=== PATIENT | male | born 1970 | race Caucasian/White ===

== ENCOUNTER 2019-08-04 20:42 | Inpatient (IN) ==
[2019-08-04] MEDS ORDERED: ONDANSETRON HCL/PF 2 MG/ML VIAL IV ONE (21:44)
[2019-08-04] MEDS ORDERED: NORMAL SALINE 1,000 ML IV ONE (21:47)
--- NOTE | 2019-08-04 21:49 | ERNOTE ---
Abdominal HPI - General Chief Complaint: Abdominal Pain Time Seen by Provider: 08/04/19 21:35 Source: patient Exam Limitations: no limitations - Immun/Allergies/Home Medications Immunizatons: IMMUNIZATION HX Immunizations Up to Date Yes History of Influenza Vaccine Yes Hx Pneumococcal Vaccination No Allergies/Adverse Reactions: Allergies No Known Allergies Allergy (Verified 08/04/19 21:16) Home Medications: HOME MEDICATIONS Multivitamin [Multi Vitamin Daily] 1 each PO DAILY 03/05/14 [Last Taken Unknown] omeprazole 20 mg capsule,delayed release See Rx Instructions .ROUTE .COMPLEX #30 capsule 02/22/19 [Last Taken Unknown] - History of Present Illness Narrative: Patient states he has had some intermittent abdominal pain for 2 to 3 days. This afternoon he had increasing abdominal pain vomiting. Feels like when he had a bowel obstruction 6 years ago. Timing: intermittent Quality: moderate, severe, cramping Activities at Onset: none Review of Systems - Review of Systems Constitutional: Absent: recent illness, fever, chills ENT: Absent: nose congestion, nasal drainage Respiratory: Absent: shortness of breath, cough Cardiology: Present: chest pain - with upper abd pressure Gastrointestinal/Abdominal: Present: See HPI Genitourinary: Absent: dysuria Musculoskeletal: Absent: back pain Skin: Absent: rash Neurological: Absent: headache, dizziness/light-headedness Endocrine: Present: intolerance to cold Medical History (Last Reviewed 08/05/19 @ 02:22 by Star Carter DO) Small bowel obstruction Surgical History: Surgical History (Last Reviewed 08/05/19 @ 02:22 by Star Carter DO) Hx of appendectomy Social History: (Last Reviewed 08/05/19 @ 02:22 by Star Carter DO) Tobacco: Smoking Status: Never smoker Alcohol: alcohol intake: current alcohol intake frequency: holiday/special occasion Substance Use: substance use type: does not use Physical Exam - Physical Exam General Appearance: Present: wd/wn, alert, no apparent distress Head Exam: Present: normal inspection, no evidence of injury Neck: Present: normal inspection, nontender, supple Respiratory: Present: no respiratory distress, normal breath sounds, no accessory muscle use Cardiovascular/Chest: Present: regular rate, rhythm, no murmur Gastrointestinal/Abdominal: Present: normal bowel sounds, soft, tenderness - Mid abdominal tenderness with some mild rebound Back Exam: Present: normal inspection, normal range of motion Extremity Exam: Present: normal inspection, normal range of motion Neurological Exam: Present: alert, oriented, normal mood/affect, no motor/sensory deficits Skin Exam: Present: normal color, warm/dry Progress - Results and Orders Patient's Lab Results:: I have reviewed the patient's lab results. Results and Orders: Laboratory Tests 08/04/19 08/04/19 22:02 22:02 WBC 8.5 Hgb 14.9 Hct 44.0 Plt Count 282 Sodium 139 Potassium 3.4 Chloride 103 Carbon Dioxide 29.7 BUN 19 Creatinine 0.93 Random Glucose 114 H Calcium 8.2 Total Bilirubin 0.4 AST 26 ALT 44 Amylase 55 Lipase 115 - Vital Signs Patient's Vital Signs:: I have reviewed the patient's vital signs. Vital Signs: Vital Signs 08/04/19 21:12 Temperature 36.9 C Pulse Rate 83 Respiratory Rate 20 Blood Pressure 134/83 O2 Sat by Pulse Oximetry 99 - X-Ray X-Ray #1 X-Ray: abdomen Interpretation: Reviewed by me X-ray Comments: IMPRESSION: FINDINGS CONSISTENT WITH ACUTE SMALL BOWEL OBSTRUCTION. Electronically signed by Bry Shirley D.O. - CT/Ultrasound CT/Ultrasound Narrative: CT abdomen and pelvis with IV and oral contrast Cute mid abdominal small bowel obstruction. No evidence for perforation. Cholelithiasis present within the gallbladder but no CT evidence for acute cholecystitis. Nonspecific shotty lymph nodes within the mesentery likely reflect chronic low- grade inflammatory process - Progress/Reassessment Chief Complaint: Abdominal Pain Progress:: Improved Progress Note-Subjective: 08/05/19 01:[address] Snow she agrees with admission to medicine and consult her. 08/05/19 01:[address] James she agrees with admission. Departure Clinical Impression: Small bowel obstruction - Departure Disposition: Still a patient Condition: Stable
[2019-08-04 22:14] LABS: Hemoglobin 14.9 gm/dL (13.5-18.0); Mean Cell Volume 86.8 fl (78-100); Mean Corpuscular Hemoglobin 29.4 pg (27-31); Mean Corpuscular Hgb Conc 33.9 g/dl (32-36); Mean Platelet Volume 8.6 fl (8-11.3); Neutrophil # 5.2 K/mm3 (1.3-6.0); Neutrophil % 61.7 % (42-75.0); Platelet Count 282 K/mm3 (150-450); Red Blood Count 5.07 M/mm3 (4.7-6.0); Red Cell Distribution Width 13.4 % (11.5-14.0); White Blood Count 8.5 K/mm3 (4.0-10.5)
[2019-08-04 22:17] LABS: Albumin * 3.4 gm/dl (3.4-5.0); Anion Gap 9.7 mmol/L (6.8-13.8); BUN/Creatinine Ratio 20.4 (9.0-21.6); Bilirubin, Total 0.4 mg/dL (0.0-1.1); Ca. Corrected For Albumin 8.4 mg/dL (8.4-10.2); Calcium * 8.2 mg/dL (7.9-10.9); Carbon Dioxide 29.7 mmol/L (24-32.6); Potassium 3.4 mmol/L (3.4-4.6); Total Protein 7.2 gm/dL (6.2-8.2)
[2019-08-04] MEDS ORDERED: MORPHINE SULFATE 2 MG/ML DISP.SYRIN IV ONE ×2 (22:32→23:59)
[2019-08-04] MEDS ORDERED: DIATRIZOATE MEGLUMINE, SODIUM 30 ML BTL PO ONE (22:36)
[2019-08-04] MEDS ORDERED: DIATRIZOATE MEGLUMINE, SODIUM 30 ML BTL ONE (22:37)
[2019-08-05] MEDS ORDERED: MORPHINE SULFATE 2 MG/ML DISP.SYRIN IV ONE (01:41)
[2019-08-05] MEDS ORDERED: ONDANSETRON HCL/PF 2 MG/ML VIAL IV PRN (01:48)
[2019-08-05] MEDS: NORMAL SALINE 1,000 ML IV PRN ×3 (03:13→19:15)
[2019-08-05] MEDS: PHENOL 180 SPRAY BTL MM PRN (05:23)
[2019-08-05] MEDS: MORPHINE SULFATE 2 MG/ML DISP.SYRIN IV PRN ×3 (07:58→19:49)
--- NOTE | 2019-08-05 08:49 | CONS ---
- Reason for consultation (1) Small bowel obstruction Date of Service: 08/05/19 HPI - General Source: patient Exam Limitations: no limitations - History of Present Illness Initial Comments: Velasquez is a pleasant 48-year-old gentleman who is had 2 to 3 days of abdominal pain. He has been passing gas but it has been less. He has also been having bowel movements but it has been decreasing. 6 years ago he had a small bowel obstruction. He has a surgical history of a laparoscopic appendectomy. After his last bowel obstruction he started taking fiber regularly. He stopped taking that 3 to 4 months ago. He just got off of his schedule and forgot to take it. Overall he is feeling much better today. He is still bloated. Timing/Duration: other - 2 to 3 days Severity: moderate Modifying Factors - (Worsens): Reports: eating Modifying Factors - (Improves): Reports: immobilization Associated Symptoms: denies symptoms Allergies/Adverse Reactions: Allergies No Known Allergies Allergy (Verified 08/04/19 21:16) Home Medications: Home Medications Medication Instructions Recorded Last Taken Multivitamin [Multi Vitamin Daily] 1 each PO DAILY 03/05/14 Unknown omeprazole 20 mg capsule,delayed 20 mg PO DAILY PRN 08/05/19 Unknown release Procedures Application of splint (03/05/14) DESTRUC-HAND JT LES NEC (03/05/10) SUTURE HAND TENDON NEC (03/05/10) Medications - Medications Current Medications: Current Medications Sodium Chloride (Sodium Chloride 0.9%) 1,000 mls @ 125 mls/hr IV .Q8H PRN PRN Reason: HYDRATION Stop: 09/04/19 01:47 Last Admin: 08/05/19 03:13 Dose: 125 mls/hr Documented by: Morphine Sulfate (Morphine Sulfate) 2 mg IV Q1H PRN PRN Reason: Pain Stop: 09/04/19 01:48 Last Admin: 08/05/19 07:58 Dose: 2 mg Documented by: Phenol/Menthol (Chloraseptic) 0 spray MM PRN PRN PRN Reason: Sore Throat Stop: 09/04/19 05:07 Last Admin: 08/05/19 05:23 Dose: 1 spray Documented by: Review of Systems - Review of Systems Generalized/Overall Review: Present: Malaise EENTM: Present: No Symptoms Reported Respiratory: Present: No Symptoms Reported Cardiac: Present: No Symptoms Reported Abdominal: Present: Nausea, Abdominal Pain, Constipation Genitourinary: Present: No Symptoms Reported Musculoskeletal: Present: No Symptoms Reported Neurological: Present: No Symptoms Reported Skin: Present: No Symptoms Reported Endocrine: Present: No Symptoms Reported Physical Examination - Exam Vital Signs: Vital Signs - Last Taken Temp 37.0 C 08/05/19 06:00 Pulse 82 08/05/19 06:00 Resp 18 08/05/19 06:00 BP 148/90 H 08/05/19 06:00 Pulse Ox 95 08/05/19 06:00 O2 Oxygen Delivery Method Room Air Constitutional: Present: Alert, Oriented x3, Cooperative ENT Exam: Present: hearing grossly normal Eye Exam: bilateral eye: normal inspection Neck: Present: supple Breasts: Present: Exam deferred Respiratory: Present: lungs clear, no respiratory distress Cardiovascular/Chest: Present: regular rate, rhythm Abdomen: Present: Normal bowel sounds, soft, obese, tender, distended. 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
[2019-08-05] MEDS ORDERED: PANTOPRAZOLE SODIUM 20 MG TABLET.DR PO PRN (10:17)
[2019-08-05] MEDS ORDERED: amLODIPine BESYLATE 5 MG TABLET PO ONE (10:20)
--- NOTE | 2019-08-05 10:38 | HP ---
Chief Complaint - Chief Complaint Date of Service: 08/05/19 Time of Service: 10:30 Chief Complaint: I have had nausea and vomiting abdominal pain for 2 days History of Present Illness: 48-year-old male with past medical history of constipation, small bowel movement, was evaluated in our ER due to epigastric abdominal pain with bloating of 10 out of 10 intensity of 2 days duration. Patient reports 2 days ago he suddenly became ill and vomited multiple times and had intense nausea throughout the day. The following day the pain intensified and he developed significant bloating. Patient had a similar episode 6 years ago and was diagnosed with a small bowel movement which later resolved, since then he has been instructed to take fiber daily but admits to noncompliance with taking his fiber for more than 3 months. Patient denied any fever or chills. Medical History (Last Reviewed 08/05/19 @ 03:20 by Nohemi Nelson RN) Small bowel obstruction Surgical History: Surgical History (Last Reviewed 08/05/19 @ 03:20 by Nohemi Nelson RN) Hx of appendectomy Social History: (Last Reviewed 08/05/19 @ 03:20 by Nohemi Nelson RN) Tobacco: Smoking Status: Never smoker Alcohol: alcohol intake: current alcohol intake frequency: holiday/special occasion Substance Use: substance use type: does not use Peds Patient Hx - Developmental: No Pertinent Hx Peds Patient Hx - Medical: No Pertinent Hx Peds Patient Hx - Cardiac/Respiratory: No Pertinent Hx Peds Patient Hx - Surgical: No Surgical History Patient History - Cancer: No Hx of Cancer Review Of Systems (GEN) - Review of Systems Generalized/Overall Review: Present: No Symptoms Reported EENTM: Present: No Symptoms Reported Respiratory: Present: No Symptoms Reported Cardiac: Present: No Symptoms Reported Abdominal: Present: Nausea, Vomiting, Abdominal Pain, Diarrhea Genitourinary: Present: No Symptoms Reported Musculoskeletal: Present: No Symptoms Reported Neurological: Present: No Symptoms Reported Skin: Present: No Symptoms Reported Endocrine: Present: No Symptoms Reported Immunizations: IMMUNIZATION HX Immunizations Up to Date Yes History of Influenza Vaccine Yes Hx Pneumococcal Vaccination No Allergies/Adverse Reactions: Allergies Allergy/AdvReac Type Severity Reaction Status Date / Time No Known Allergies Allergy Verified 08/04/19 21:16 Home Medications: HOME MEDICATIONS Multivitamin [Multi Vitamin Daily] 1 each PO DAILY 03/05/14 [Last Taken Unknown] omeprazole 20 mg capsule,delayed release 20 mg PO DAILY PRN 08/05/19 [Last Taken Unknown] Exam - Exam Vital Signs: Vital Signs - Last Taken Temp 37.0 C 08/05/19 06:00 Pulse 82 08/05/19 06:00 Resp 18 08/05/19 06:00 BP 148/90 H 08/05/19 06:00 Pulse Ox 95 08/05/19 06:00 Constitutional: Present: Alert, Oriented x3, Cooperative, Well developed, Well nourished, No distress ENT Exam: Present: normal ENT inspection, hearing grossly normal, pharynx normal, TMs normal, other - Nasogastric tube in place Eye Exam: bilateral eye: normal inspection, PERRL, EOMI Neck: Present: non-tender, full range of motion, supple, normal inspection, trachea midline Back Exam: Present: normal inspection, no CVA tenderness, no vertebral tenderness Breasts: Present: Exam deferred Respiratory: Present: chest non-tender, lungs clear, normal breath sounds, no respiratory distress, no accessory muscle use Cardiovascular/Chest: Present: normal peripheral pulses, regular rate, rhythm, no chest tenderness, no edema, no gallop, no JVD, no murmur, no rub Peripheral Pulses: carotid (R): 4+, carotid (L): 4+, femoral (R): 4+, femoral (L): 4+, dorsalis-pedis (R): 4+, dorsalis-pedis (L): 0, 4+ Abdomen: Present: Normal bowel sounds, soft, no hepatospenomegaly, no masses, obese, tender - Significant epigastric tenderness, distended /Rectal: Present: Exam deferred Extremity: Present: normal range of motion, non-tender, normal inspection, no pedal edema, no calf tenderness, normal capillary refill Skin Exam: Present: normal color, warm/dry, no cyanosis Lymphatic: Present: no adenopathy 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: 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: 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 tested, normal cerebellar test, no motor/sensory deficits, alert, normal mood/affect, oriented x 3 Appearance: Present: appropriate appearance, appropriate insight, neat, no memory impairment Eye contact: Present: cooperative, good eye contact, normal speech Thoughts: Present: normal thought pattern, no apparent hallucination Diagnostic Studies: Abnormal Lab Results 08/04/19 08/04/19 Range/Units 22:02 22:02 Monocytes % 13.7 H (0.0-9) % Monocytes # 1.2 H (0.0-1.0) k/mm3 Random Glucose 114 H (70-110) mg/dL Laboratory Results WBC 8.5 K/mm3 (4.0-10.5) 08/04/19 22:02 RBC 5.07 M/mm3 (4.7-6.0) 08/04/19 22:02 Hgb 14.9 gm/dL (13.5-18.0) 08/04/19 22:02 Hct 44.0 % (42.0-52.0) 08/04/19 22:02 MCV 86.8 fl (78-100) 08/04/19 22:02 MCH 29.4 pg (27-31) 08/04/19 22:02 MCHC 33.9 g/dl (32-36) 08/04/19 22:02 RDW 13.4 % (11.5-14.0) 08/04/19 22:02 Plt Count 282 K/mm3 (150-450) 08/04/19 22:02 MPV 8.6 fl (8-11.3) 08/04/19 22:02 Immature Gran % (Auto) 0.40 % (0.001-0.429) 08/04/19 22:02 Immature Gran # (Auto) 0.03 K/mm3 (0.000-0.0310) 08/04/19 22:02 Neutrophils % 61.7 % (42-75.0) 08/04/19 22:02 Lymphocytes % 21.6 % (20-51) 08/04/19 22:02 Monocytes % 13.7 % (0.0-9) H 08/04/19 22:02 Eosinophils % 2.2 % (0.0-3.0) 08/04/19 22:02 Basophils % 0.4 % (0.0-1.0) 08/04/19 22:02 Nucleated RBC % 0.0 k/mm3 (0-1) 08/04/19 22:02 Neutrophils # 5.2 K/mm3 (1.3-6.0) 08/04/19 22:02 Lymphocytes # 1.83 k/mm3 (1.5-3.5) 08/04/19 22:02 Monocytes # 1.2 k/mm3 (0.0-1.0) H 08/04/19 22:02 Eosinophils # 0.2 k/mm3 (0.0-0.7) 08/04/19 22:02 Absolute Basophils 0.0 k/mm3 (0.0-0.1) 08/04/19 22:02 Sodium 139 mmol/L (132-142) 08/04/19 22:02 Plasma Sodium 139 mmol/L (130-142) 08/04/19 22:02 Potassium 3.4 mmol/L (3.4-4.6) 08/04/19 22:02 Chloride 103 mmol/L (97-106) 08/04/19 22:02 Carbon Dioxide 29.7 mmol/L (24-32.6) 08/04/19 22:02 Anion Gap 9.7 mmol/L (6.8-13.8) 08/04/19 22:02 BUN 19 mg/dL (6-23) 08/04/19 22:02 Creatinine 0.93 mg/dL (0.4-1.4) 08/04/19 22:02 Est GFR (Non-Af Amer) 91 mL/min (60-130) 08/04/19 22:02 BUN/Creatinine Ratio 20.4 (9.0-21.6) 08/04/19 22:02 Random Glucose 114 mg/dL (70-110) H 08/04/19 22:02 Calcium 8.2 mg/dL (7.9-10.9) 08/04/19 22:02 Calcium Adj for Albumin 8.4 mg/dL (8.4-10.2) 08/04/19 22:02 Total Bilirubin 0.4 mg/dL (0.0-1.1) 08/04/19 22:02 AST 26 U/L (0-48) 08/04/19 22:02 ALT 44 U/L (19-67) 08/04/19 22:02 Alkaline Phosphatase 76 U/L (50-170) 08/04/19 22:02 Total Protein 7.2 gm/dL (6.2-8.2) 08/04/19 22:02 Albumin 3.4 gm/dl (3.4-5.0) 08/04/19 22:02 Amylase 55 U/L (25-115) 08/04/19 22:02 Lipase 115 U/L (73-393) 08/04/19 22:02 Assessment/Plan - Narrative Narrative: Patient was evaluated at bedside and medical chart was reviewed and decision to admit for small bowel obstruction was made. Patient underwent nasogastric tube insertion while in the ER and is currently on intermittent suction. He reports the nasogastric tube being uncomfortable but says that that has been less distention since insertion. The patient has not vomited since arriving to the floor but has been administered antinausea medication since arriving. He reports multiple nonbloody diarrhea since arriving to his room, this is most likely secondary to the contrast that he was administered in the ER for abdominal CT. That CT revealed small bowel obstruction, which is very similar to the previous episode he had 6 years ago. General surgeon was consulted and after evaluation of the patient, it was recommended that he stay an additional day with his nasogastric tube since he is still significantly distended. Patient is currently n.p.o. but was provided with ice chips to keep his mouth moist. We will follow-up with further recommendations from surgery and with the patient tomorrow morning. - Assessment/Plan (1) Small bowel obstruction Problem: Acute (2) HTN (hypertension) Problem: Acute
[2019-08-05] MEDS: MULTIVITAMINS 1 CAP CAPSULE PO SCH (11:07)
[2019-08-06] MEDS: NORMAL SALINE 1,000 ML IV PRN (03:21)
[2019-08-06] MEDS: PHENOL 180 SPRAY BTL MM PRN (04:58)
[2019-08-06] MEDS: MORPHINE SULFATE 2 MG/ML DISP.SYRIN IV PRN (08:21)
[2019-08-06] MEDS: MULTIVITAMINS 1 CAP CAPSULE PO SCH (08:28)
--- NOTE | 2019-08-06 10:33 | PN ---
Dictated Progress Note - Date and Time Seen: Date: 08/06/19 Time: 10:32 - Progress Note Narrative: Feeling much better. Denies abdominal pain. Having bowel function. Vital Signs - Last Taken Temp 36.9 C 08/06/19 08:55 Pulse 88 08/06/19 08:55 Resp 16 08/06/19 08:55 BP 138/84 08/06/19 08:55 Pulse Ox 95 08/06/19 08:55 NAD non labored respirations abd soft, non distended, non tender Impression: Resolved small bowel obstruction Plan: DC NG tube and advance diet as tolerated
--- NOTE | 2019-08-06 11:48 | DS ---
(1) Small bowel obstruction Problem: Resolved (2) HTN (hypertension) Problem: Acute Date of Discharge:: 08/06/19 Hospital Course: 48-year-old male admitted for small bowel obstruction was evaluated at bedside and was found to be afebrile and in no acute distress. Patient reports resolution of his abdominal pain, and the distention has resolved. He was evaluated by the surgeon this morning who recommended removal of his nasogastric tube and starting clear liquid diet. Patient was given clear liquids which she tolerated without any issues and he denied any nausea or vomiting after eating. Therefore given these findings we will discharge him home with instructions to continue progressing his diet at home and to follow-up with PCP. Procedures Performed: see notes below - Nasogastric tube insertion Results and Findings: Lab Pending Results 08/04/19 22:02: WBC 8.5, RBC 5.07, Hgb 14.9, Hct 44.0, MCV 86.8, MCH 29.4, MCHC 33.9, RDW 13.4, Plt Count 282, MPV 8.6, Immature Gran % (Auto) 0.40, Immature Gran # (Auto) 0.03, Neutrophils % 61.7, Lymphocytes % 21.6, Monocytes % 13.7 H, Eosinophils % 2.2, Basophils % 0.4, Nucleated RBC % 0.0, Neutrophils # 5.2, Lymphocytes # 1.83, Monocytes # 1.2 H, Eosinophils # 0.2, Absolute Basophils 0.0 08/04/19 22:02: Sodium 139, Plasma Sodium 139, Potassium 3.4, Chloride 103, Carbon Dioxide 29.7, Anion Gap 9.7, BUN 19, Creatinine 0.93, Est GFR (Non-Af Amer) 91, BUN/Creatinine Ratio 20.4, Random Glucose 114 H, Calcium 8.2, Calcium Adj for Albumin 8.4, Total Bilirubin 0.4, AST 26, ALT 44, Alkaline Phosphatase 76, Total Protein 7.2, Albumin 3.4, Amylase 55, Lipase 115 Discharge Location: Home Disposition: Home self-care Condition: Stable Face to Face Encounter completed per [facility] Guidelines: No Discharge Activity: Activity as tolerated Discharge Diet: Full Liquids, Other - Continue progressing diet at home Referrals: Segun Perez MD [Primary Care Provider] - Complete Home Medications List: Complete Home Medication List: Multivitamin [Multi-Vitamin Daily] 1 each PO DAILY 03/05/14 omeprazole 20 mg capsule,delayed release 20 mg PO DAILY PRN 08/05/19
[2019-08-06 12:30] VITALS: BP 134/86
== END 2019-08-06 12:45 | disposition home or self-care (01) | DRG 390 ==
LOC: ER 20:42 → MS 08-05 01:12
PROVIDERS: ADMIT Family Medicine; ATTEND Family Medicine
CPT/HCPCS: 36415; 71010; 71045; 74019; 74020; 74177; 80053; 82150; 83690; 85025; 96361; 96374; 96375; 96376; 99285; J2405; Q9963; Q9967